=== PATIENT | female | born 1940 | race Two or more races ===

== ENCOUNTER 2018-12-04 09:53 | Inpatient (IN) | payer MEDICARE, MEDICAID ==
[~2018-12-04] VITALS: Ht 154.9 cm; Wt 70.6 kg
[2018-12-04 13:02] VITALS: BP 122/67
[2018-12-04] MEDS ORDERED: LISI-167 PO (13:53)
[2018-12-04] MEDS ORDERED: AMLO-150 PO (13:53)
[2018-12-04] MEDS ORDERED: CLOP75TA52 PO (13:53)
[2018-12-04] MEDS ORDERED: ASPI81TA45 PO (13:53)
[2018-12-04] MEDS ORDERED: ATOR40TA78 PO (13:53)
[2018-12-04] MEDS ORDERED: CHOL200059 PO (13:54)
[2018-12-04] MEDS ORDERED: morphine SULFATE 10 MG/ML, 1ML IVPush PRN (14:30)
[2018-12-04] MEDS ORDERED: NITROGLYCERIN 0.4 MG BOTTLE (25 TABS) SL PRN (14:30)
[2018-12-04 15:01] LABS: BASOPHILS # (AUTO) 0.06 x10^3/uL (0-0.1); BASOPHILS % (AUTO) 1 % (0-1); EOSINOPHILS # (AUTO) 0.14 x10^3/uL (0-0.4); EOSINOPHILS % (AUTO) 2 % (1-7); LYMPHOCYTES # (AUTO) 2.02 x10^3/uL (1-3.4); LYMPHOCYTES % (AUTO) 23 % (22-44); MD NO; MEAN CORPUSCULAR HEMOGLOBIN 29.9 pg (27.0-34.8); MEAN CORPUSCULAR HGB CONC 32.9 g/dL (32.4-35.8); MEAN CORPUSCULAR VOLUME 90.6 fL (80-100); MEAN PLATELET VOLUME 8.4 fL (7.4-10.4); MONOCYTES # (AUTO) 0.91 x10^3/uL (0.2-0.8); MONOCYTES % (AUTO) 10 % (2-9); NEUTROPHILS # (AUTO) 5.64 x10^3/uL (1.8-6.8); NEUTROPHILS % (AUTO) 64 % (42-75); PLATELET COUNT 377 x10^3/uL (130-400); RED BLOOD COUNT 4.73 x10^6/uL (3.82-5.3); RED CELL DISTRIBUTION WIDTH 13.8 % (9.6-15.2)
[2018-12-04 15:12] LABS: ALBUMIN 3.3 g/dL (3.4-5.0); ANION GAP 4 mmol/L (5-15); CALCIUM 9.3 mg/dL (8.5-10.1); CHLORIDE 109 mmol/L (98-107)
[2018-12-04 15:16] LABS: ALANINE AMINOTRANSFERASE 39 U/L (12-78); ALKALINE PHOSPHATASE 98 U/L (45-117); BILIRUBIN,TOTAL 0.7 mg/dL (0.2-1.0); CREATININE 0.82 mg/dL (0.55-1.02); TOTAL PROTEIN 6.9 g/dL (6.4-8.2)
[2018-12-04 15:25] VITALS: BP 127/75
[2018-12-04] MEDS: HEPARIN 5,000 UNITS/ML, 1ML SQ SCH ×2 (15:44→23:58)
[2018-12-04 19:43] VITALS: BP 130/74
[2018-12-04] MEDS: AMLODIPINE 5 MG TABLET PO SCH (20:19)
[2018-12-04] MEDS: ATORVASTATIN 40 MG TABLET PO SCH (20:19)
[2018-12-04] MEDS: ACETAMINOPHEN 325 MG TABLET PO PRN (20:23)
[2018-12-05 00:54] VITALS: BP 110/71
[2018-12-05 06:06] LABS: BASOPHILS # (AUTO) 0.05 x10^3/uL (0-0.1); BASOPHILS % (AUTO) 1 % (0-1); EOSINOPHILS # (AUTO) 0.23 x10^3/uL (0-0.4); EOSINOPHILS % (AUTO) 3 % (1-7); LYMPHOCYTES # (AUTO) 2.36 x10^3/uL (1-3.4); LYMPHOCYTES % (AUTO) 33 % (22-44); MD NO; MEAN CORPUSCULAR HEMOGLOBIN 29.8 pg (27.0-34.8); MEAN CORPUSCULAR HGB CONC 32.5 g/dL (32.4-35.8); MEAN CORPUSCULAR VOLUME 91.7 fL (80-100); MEAN PLATELET VOLUME 8.5 fL (7.4-10.4); MONOCYTES # (AUTO) 0.73 x10^3/uL (0.2-0.8); MONOCYTES % (AUTO) 10 % (2-9); NEUTROPHILS # (AUTO) 3.75 x10^3/uL (1.8-6.8); NEUTROPHILS % (AUTO) 53 % (42-75); PLATELET COUNT 346 x10^3/uL (130-400); RED BLOOD COUNT 4.55 x10^6/uL (3.82-5.3); RED CELL DISTRIBUTION WIDTH 13.7 % (9.6-15.2)
[2018-12-05 06:23] LABS: CHLORIDE 111 mmol/L (98-107)
[2018-12-05 06:25] LABS: INTERNATIONAL NORMALIZED RATIO 0.97 (0.93-1.1); PROTHROMBIN TIME 10.2 Seconds (9.6-11.5)
[2018-12-05 06:28] LABS: ANION GAP 8 mmol/L (5-15); CREATININE 0.85 mg/dL (0.55-1.02)
[2018-12-05 06:41] VITALS: BP 123/73
[2018-12-05] MEDS: ASPIRIN 81 MG TABLET EC PO SCH (08:50)
[2018-12-05] MEDS: AMLODIPINE 5 MG TABLET PO SCH ×2 (08:50→20:14)
[2018-12-05] MEDS: LISINOPRIL 10 MG TABLET PO SCH (08:50)
[2018-12-05] MEDS: DOCUSATE 100 MG CAPSULE PO SCH (08:50)
[2018-12-05] MEDS: HEPARIN 5,000 UNITS/ML, 1ML SQ SCH ×2 (08:50→16:17)
[2018-12-05 12:33] VITALS: BP 136/73
[2018-12-05] MEDS: ACETAMINOPHEN 325 MG TABLET PO PRN (13:33)
[2018-12-05 20:12] VITALS: BP 117/62
[2018-12-05] MEDS: ATORVASTATIN 40 MG TABLET PO SCH (20:14)
[2018-12-06] MEDS: HEPARIN 5,000 UNITS/ML, 1ML SQ SCH ×3 (00:10→16:36)
[2018-12-06 01:49] VITALS: BP 129/67
[2018-12-06] MEDS: LISINOPRIL 10 MG TABLET PO SCH (08:44)
[2018-12-06] MEDS: DOCUSATE 100 MG CAPSULE PO SCH (08:44)
[2018-12-06] MEDS: AMLODIPINE 5 MG TABLET PO SCH ×2 (08:44→20:46)
[2018-12-06] MEDS: ASPIRIN 81 MG TABLET EC PO SCH (08:44)
[2018-12-06 09:02] VITALS: BP 123/63
[2018-12-06 14:23] VITALS: BP 118/73
[2018-12-06 19:47] VITALS: BP 127/59
[2018-12-06] MEDS: ATORVASTATIN 40 MG TABLET PO SCH (20:46)
[2018-12-07] MEDS: HEPARIN 5,000 UNITS/ML, 1ML SQ SCH ×4 (00:09→23:51)
[2018-12-07 01:44] VITALS: BP 126/75
[2018-12-07] MEDS: ASPIRIN 81 MG TABLET EC PO SCH (08:43)
[2018-12-07] MEDS: LISINOPRIL 10 MG TABLET PO SCH (08:43)
[2018-12-07] MEDS: AMLODIPINE 5 MG TABLET PO SCH ×2 (08:43→20:30)
[2018-12-07] MEDS: DOCUSATE 100 MG CAPSULE PO SCH (08:43)
[2018-12-07 08:44] VITALS: BP 126/68
[2018-12-07 12:06] VITALS: BP 144/64
[2018-12-07 19:43] VITALS: BP 145/81
[2018-12-07 20:29] VITALS: BP 130/73
[2018-12-07] MEDS: ATORVASTATIN 40 MG TABLET PO SCH (20:30)
[2018-12-08 01:04] VITALS: BP 131/78
[2018-12-08 08:45] VITALS: BP 128/75
[2018-12-08] MEDS: DOCUSATE 100 MG CAPSULE PO SCH (09:09)
[2018-12-08] MEDS: ASPIRIN 81 MG TABLET EC PO SCH (09:09)
[2018-12-08] MEDS: HEPARIN 5,000 UNITS/ML, 1ML SQ SCH (09:09)
[2018-12-08] MEDS: LISINOPRIL 10 MG TABLET PO SCH (09:09)
[2018-12-08] MEDS: AMLODIPINE 5 MG TABLET PO SCH (09:10)
[2018-12-08] MEDS ORDERED: CLOPIDOGREL 75 MG TABLET PO SCH (11:00)
[2018-12-08] MEDS ORDERED: METO25TA35 PO (12:31)
[2018-12-08] MEDS ORDERED: METOPROLOL TARTRATE 25 MG TABLET PO SCH (18:00)
== END 2018-12-08 17:00 | disposition home or self-care (01) | DRG 280 ==
LOC: 5SO 12:34 → MERGE 12:34 → DCLOUNGE 12-08 16:40
PROVIDERS: ADMIT Hospitalist; ATTEND Hospitalist
DX: I21.4 Non-ST elevation (NSTEMI) myocardial infarction (principal); I50.21 Acute systolic (congestive) heart failure; S22.42XA Multiple fractures of ribs, left side, initial encounter for closed fracture; I69.354 Hemiplegia and hemiparesis following cerebral infarction affecting left non-dominant side; E78.5 Hyperlipidemia, unspecified; I11.0 Hypertensive heart disease with heart failure; I25.10 Atherosclerotic heart disease of native coronary artery without angina pectoris; I25.5 Ischemic cardiomyopathy; W18.30XA Fall on same level, unspecified, initial encounter; Z87.891 Personal history of nicotine dependence; Z95.1 Presence of aortocoronary bypass graft; Z99.3 Dependence on wheelchair; Y93.89 Activity, other specified; Y92.89 Other specified places as the place of occurrence of the external cause
CPT/HCPCS: 36415; 80048; 80053; 85025; 85610; 93005; G0378; J1644

== ENCOUNTER → 2020-05-15 | Outpatient (CLI) | payer MEDICARE, MEDICAID ==
[~2020-05-15] MED LIST: AMLO-150 PO; ASPI81TA45 PO; ATOR40TA78 PO; CHOL200059 PO; CLOP75TA52 PO; LISI-167 PO; METO25TA35 PO
== END | disposition home or self-care (01) ==
LOC: WOUND 08:28
PROVIDERS: ATTEND Internal Medicine
DX: L89.510 Pressure ulcer of right ankle, unstageable (principal); L97.812 Non-pressure chronic ulcer of other part of right lower leg with fat layer exposed; I25.10 Atherosclerotic heart disease of native coronary artery without angina pectoris; E78.5 Hyperlipidemia, unspecified; G81.94 Hemiplegia, unspecified affecting left nondominant side; I11.0 Hypertensive heart disease with heart failure; I50.21 Acute systolic (congestive) heart failure; Z87.891 Personal history of nicotine dependence; Z95.1 Presence of aortocoronary bypass graft; Z86.73 Personal history of transient ischemic attack (TIA), and cerebral infarction without residual deficits
CPT/HCPCS: 97597; G0463

== ENCOUNTER 2020-05-22 08:25 | Outpatient (CLI) | payer MEDICARE, MEDICAID | END 2020-05-22 23:59 | disposition home or self-care (01) | LOC: WOUND 08:25 | PROVIDERS: ATTEND Internal Medicine | DX: L89.510 Pressure ulcer of right ankle, unstageable (principal); L97.812 Non-pressure chronic ulcer of other part of right lower leg with fat layer exposed; I25.10 Atherosclerotic heart disease of native coronary artery without angina pectoris; E78.5 Hyperlipidemia, unspecified; G81.94 Hemiplegia, unspecified affecting left nondominant side; I11.0 Hypertensive heart disease with heart failure; I50.21 Acute systolic (congestive) heart failure; Z87.891 Personal history of nicotine dependence; Z95.1 Presence of aortocoronary bypass graft; Z86.73 Personal history of transient ischemic attack (TIA), and cerebral infarction without residual deficits | CPT/HCPCS: 97597 ==

== ENCOUNTER → 2020-06-05 | Outpatient (CLI) | payer MEDICARE, MEDICAID | END | disposition home or self-care (01) | LOC: WOUND 08:11 | PROVIDERS: ATTEND Internal Medicine | DX: L89.510 Pressure ulcer of right ankle, unstageable (principal); L97.812 Non-pressure chronic ulcer of other part of right lower leg with fat layer exposed; I25.10 Atherosclerotic heart disease of native coronary artery without angina pectoris; E78.5 Hyperlipidemia, unspecified; G81.94 Hemiplegia, unspecified affecting left nondominant side; I11.0 Hypertensive heart disease with heart failure; I50.21 Acute systolic (congestive) heart failure; Z87.891 Personal history of nicotine dependence; Z95.1 Presence of aortocoronary bypass graft; Z86.73 Personal history of transient ischemic attack (TIA), and cerebral infarction without residual deficits | CPT/HCPCS: 97597 ==

== ENCOUNTER → 2020-12-13 | Outpatient (CLI) | payer MEDICARE, MEDICAID | END | disposition home or self-care (01) | LOC: CVU 14:59 | PROVIDERS: ATTEND Family Medicine | DX: I77.1 Stricture of artery (principal); I10 Essential (primary) hypertension; I25.2 Old myocardial infarction; I73.9 Peripheral vascular disease, unspecified; L97.319 Non-pressure chronic ulcer of right ankle with unspecified severity | CPT/HCPCS: 93922; 93925 ==